=== PATIENT | male | born 1995 ===

== ENCOUNTER 2017-05-24 16:36 | Emergency (ER) | payer OTHER ==
[2017-05-24 16:59] VITALS: BMI 19.5
[2017-05-24 17:01] VITALS: TEMP 98.8; O2SAT 98
--- NOTE | 2017-05-24 17:20 | C.PDOC ---
History Of Present Illness CONCERN FOR STD EXPOSURE YEST. PS +UNPROTECTED SEX, PARTNER REMOVED CONDOM. DENIES OTHER INJURY OR ASSOC SX. 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 Time Seen by Provider: 05/24/17 17:10 Chief Complaint (Nursing): Medical Clearance History Per: Patient History/Exam Limitations: no limitations Onset/Duration Of Symptoms: Days (1) Past Medical History Reviewed: Historical Data, Nursing Documentation, Vital Signs Vital Signs: Last Vital Signs Temp 98.8 F 05/24/17 16:58 Pulse 75 05/24/17 16:58 Resp 18 05/24/17 16:58 BP 138/84 05/24/17 16:58 Pulse Ox 98 05/24/17 17:56 Family History: States: No Known Family Hx - Social History Hx Alcohol Use: No Hx Substance Use: No - Immunization History Hx Tetanus Toxoid Vaccination: Yes Hx Influenza Vaccination: Yes Hx Pneumococcal Vaccination: Yes Review Of Systems Except As Marked, All Systems Reviewed And Found Negative. Constitutional: Positive for: Fever Gastrointestinal: Negative for: Vomiting, Abdominal Pain Genitourinary: Negative for: Dysuria Physical Exam - Physical Exam Appears: Non-toxic, No Acute Distress Skin: Warm, Dry, No Rash Head: Atraumatic, Normacephalic Oral Mucosa: Moist Respiratory: Normal Breath Sounds Extremity: Normal ROM, No Swelling Neurological/Psych: Oriented x3, Normal Speech, Normal Motor ED Course And Treatment O2 Sat by Pulse Oximetry: 98 (RA) Pulse Ox Interpretation: Normal Progress - Re-Evaluation Re-evaluation Note: 05/24/17 17:35 PT NOW REQUESTING TIBURCIO MODI. 05/24/17 17:51 D/W HENRIETTA MILLER WILL ARRANGE FOR TIBURCIO BYNUM. PT WILL BE CONTACTED LATER FOR PD FU. PT AGREES W PLAN. Medical Decision Making Medical Decision Making: PLAN: * Combivir PO * Tivicay PO * Zithromax PO * Rocephin IM Disposition Counseled Patient/Family Regarding: Diagnosis, Need For Followup, Rx Given - Disposition Referrals: [facility], [facility] [Outside] [facility] [Outside] Disposition Time: 19:00 Condition: STABLE Prescriptions: Dolutegravir Sodium [Tivicay] 1 tab PO DAILY #30 tab Dolutegravir Sodium [Tivicay] 1 tab PO DAILY #27 tab Dolutegravir Sodium [Tivicay] 1 tab PO DAILY #3 tab Emtricitabine/Tenofovir Diso [Truvada 200 MG-300 MG] 1 tab PO DAILY #27 tab Emtricitabine/Tenofovir Diso [Truvada 200 MG-300 MG] 1 tab PO DAILY #3 tab Instructions: Sexually Transmitted Diseases (ED), Postexposure Prophylaxis (ED) Forms: [employer] (German) - Clinical Impression Clinical Impression: Possible exposure to STD - Scribe Statement The provider has reviewed the documentation as recorded by the Coraibshaina Henley Provider Attestation: All medical record entries made by the Coraibshaina were at my direction and personally dictated by me. I have reviewed the chart and agree that the record accurately reflects my personal performance of the history, physical exam, medical decision making, and the department course for this patient. I have also personally directed, reviewed, and agree with the discharge instructions and disposition. Physician Patient Turnover Patient Signed Over To: Codey Schumacher Handoff Comments: HU SHIPLEY
[2017-05-24] MEDS ORDERED: cefTRIAXone (Rocephin) 250 mg Inj IM STA (17:21)
[2017-05-24] MEDS ORDERED: Emtricitabine-Tenofovir 200 mg-300 mg Tab PO STA (17:36)
[2017-05-24] MEDS ORDERED: Emtricitabine-Tenofovir 200 mg-300 mg Tab PO NR (17:45)
[2017-05-24 20:11] VITALS: BP 129/85; PULSE 77; RESP 16
== END 2017-05-24 20:10 | disposition home or self-care (01) ==
LOC: C.ER 16:36
DX: Z77.21 Contact with and (suspected) exposure to potentially hazardous body fluids (principal)
CPT/HCPCS: 36415; 86592; 86706; 87491; 87591; 96372; 99284; J0696